=== PATIENT | female | born 1970 | race Two or more races ===

== ENCOUNTER → 2016-12-02 | Outpatient (REF) | payer BC ==
[2016-12-02 19:27] LABS: ALBUMIN 4.4 GM/DL (3.2-5.2); ALBUMIN/GLOBULIN RATIO 1.26 (1.00-1.93); ALKALINE PHOSPHATASE 42 U/L (45-117); ALT/SGPT 13 U/L (12-78); ANION GAP 9 MEQ/L (8-16); AST/SGOT 8 U/L (15-37); BILIRUBIN,TOTAL 0.2 MG/DL (0.2-1.0); BLOOD UREA NITROGEN 23 MG/DL (7-18); CARBON DIOXIDE LEVEL 25 MEQ/L (21-32); CHLORIDE LEVEL 108 MEQ/L (98-107); CREATININE FOR GFR 0.71 MG/DL (0.55-1.02); GLOMERULAR FILTRATION RATE > 60.0 (>58); GLUCOSE, FASTING 86 MG/DL (70-105); POTASSIUM SERUM 4.3 MEQ/L (3.5-5.1); SODIUM LEVEL 142 MEQ/L (136-145); TOTAL PROTEIN 7.9 GM/DL (6.4-8.2); URIC ACID 2.7 MG/DL (2.6-6.0)
[2016-12-02 20:37] LABS: BASO # 0.1 K/mm3 (0.0-0.2); BASO % 0.9 % (0.0-1.0); EOS # 0.2 K/mm3 (0.0-0.50); EOS % 1.8 % (0.0-3.0); LARGE UNSTAINED CELL # 0.1 K/mm3 (0.0-0.4); LARGE UNSTAINED CELL % 1.4 % (0.0-4.0); LYMPH # 2.7 K/mm3 (1.5-4.5); LYMPH % 29.7 % (24.0-44.0); MEAN CORPUSCULAR HEMOGLOBIN 32.2 pg (27.0-33.0); MEAN CORPUSCULAR HGB CONC 34.2 g/dl (32.0-36.5); MEAN CORPUSCULAR VOLUME 94.3 fl (80.0-96.0); MONO # 0.3 K/mm3 (0.0-0.8); MONO % 3.7 % (0.0-5.0); NEUTROPHILS # 5.6 K/mm3 (1.8-7.7); NEUTROPHILS % 62.4 % (36.0-66.0); PLATELET COUNT, AUTOMATED 275 k/mm3 (150-450); RED CELL DISTRIBUTION WIDTH 11.5 % (11.5-14.5); WHITE BLOOD COUNT 8.9 K/mm3 (4.0-10.0)
[2016-12-02 21:49] LABS: ERYTHROCYTE SEDIMENTATION RATE 8 mm/hr (0-20)
[2016-12-07 00:08] LABS: BABESIOSIS LEVEL IGG <1:10 (Neg:<1:10); BABESIOSIS LEVEL IGM <1:10 (Neg:<1:10); Lyme Disease IgG/IgM Antibodie <0.91 ISR (0.00-0.90); Lyme Disease IgM Ab Quantitati <0.80 index (0.00-0.79)
== END ==
LOC: M LAB REF 17:04
DX: M79.609 Pain in unspecified limb (principal)

== ENCOUNTER → 2016-12-16 | Outpatient (CLI) | payer BC ==
--- NOTE | 2016-12-16 14:30 | REP ---
LUMBAR SPINE , FIVE VIEWS: HISTORY: Left hip pain. There are four lumbar type vertebral bodies. There is partial sacralization of the L5 vertebral body. A rudimentary disc is present. There is no acute fracture or subluxation. The L3-4 and L4-5 intervertebral discs are decreased in height. Vacuum phenomenon is present at the L4-5 level. These findings are consistent with disc degeneration. There is narrowing of the L4-5 and L5-S1 facet joints. Surgical clips are present in the pelvis. IMPRESSION: Degenerative change as described above.
--- NOTE | 2016-12-16 14:35 | REP ---
LEFT HIP, TWO VIEWS: HISTORY: Hip pain. There is no acute fracture or dislocation. There is minimal narrowing of the joint space with associated osteophyte formation. IMPRESSION: Degenerative change as described above.
== END ==
LOC: M CLY 13:26
PROVIDERS: ATTEND Physician Assistant
DX: M25.552 Pain in left hip (principal); R30.0 Dysuria; M16.12 Unilateral primary osteoarthritis, left hip

== ENCOUNTER → 2016-12-16 | Outpatient (REF) | payer BC ==
[2016-12-16 17:15] LABS: BASO # 0.1 K/mm3 (0.0-0.2); BASO % 0.8 % (0.0-1.0); EOS # 0.1 K/mm3 (0.0-0.50); EOS % 0.8 % (0.0-3.0); LARGE UNSTAINED CELL # 0.1 K/mm3 (0.0-0.4); LARGE UNSTAINED CELL % 1.6 % (0.0-4.0); LYMPH # 2.3 K/mm3 (1.5-4.5); MEAN CORPUSCULAR HEMOGLOBIN 31.2 pg (27.0-33.0); MEAN CORPUSCULAR HGB CONC 33.3 g/dl (32.0-36.5); MEAN CORPUSCULAR VOLUME 93.9 fl (80.0-96.0); MONO # 0.4 K/mm3 (0.0-0.8); MONO % 5.1 % (0.0-5.0); NEUTROPHILS # 5.3 K/mm3 (1.8-7.7); NEUTROPHILS % 63.7 % (36.0-66.0); PLATELET COUNT, AUTOMATED 252 k/mm3 (150-450); RED CELL DISTRIBUTION WIDTH 11.7 % (11.5-14.5); WHITE BLOOD COUNT 8.4 K/mm3 (4.0-10.0)
[2016-12-16 18:06] LABS: ALBUMIN 4.1 GM/DL (3.2-5.2); ALBUMIN/GLOBULIN RATIO 1.24 (1.00-1.93); ALKALINE PHOSPHATASE 38 U/L (45-117); ALT/SGPT 12 U/L (12-78); ANION GAP 5 MEQ/L (8-16); AST/SGOT 12 U/L (15-37); BILIRUBIN,TOTAL 0.3 MG/DL (0.2-1.0); BLOOD UREA NITROGEN 27 MG/DL (7-18); CALCIUM LEVEL 8.9 MG/DL (8.5-10.1); CARBON DIOXIDE LEVEL 29 MEQ/L (21-32); CHLORIDE LEVEL 108 MEQ/L (98-107); CREATININE FOR GFR 0.67 MG/DL (0.55-1.02); GLOMERULAR FILTRATION RATE > 60.0 (>58); GLUCOSE, FASTING 85 MG/DL (70-105); POTASSIUM SERUM 4.4 MEQ/L (3.5-5.1); SODIUM LEVEL 142 MEQ/L (136-145); TOTAL PROTEIN 7.4 GM/DL (6.4-8.2)
== END ==
LOC: M SFHCCAPE 12:19
PROVIDERS: ATTEND Physician Assistant
DX: R30.0 Dysuria (principal); M25.552 Pain in left hip; M16.12 Unilateral primary osteoarthritis, left hip

== ENCOUNTER → 2016-12-27 | Outpatient (REF) | payer BC ==
[2016-12-27 12:03] LABS: FOLATE 12.2 NG/ML; VITAMIN B12 LEVEL 1799 PG/ML
[2016-12-27 12:12] LABS: FREE T4 1.04 NG/DL (0.76-1.46); TOTAL PROTEIN 7.5 GM/DL (6.4-8.2)
[2016-12-30 13:12] LABS: ALBUMIN 4.46 GM/DL (3.29-5.55); ALBUMIN % 59.4 % (55.8-66.1); GAMMA GLOBULIN % 15.1 % (11.1-18.8)
[2016-12-31 00:06] LABS: VITAMIN E LEVEL 11.5 mg/L (5.3-16.8)
== END ==
LOC: M LABNEURO 09:31
PROVIDERS: ATTEND Psychiatry & Neurology Neurology
DX: G62.9 Polyneuropathy, unspecified (principal)

== ENCOUNTER → 2018-12-15 | Outpatient (REF) | payer BC | LOC: M LAB 14:51 | PROVIDERS: ATTEND Allergy & Immunology Allergy | DX: Z91.040 Latex allergy status (principal) ==

== ENCOUNTER → 2020-03-20 | Outpatient (CLI) | payer BC | LOC: M LABSMTC 13:24 | PROVIDERS: ATTEND Family Medicine | DX: Z11.59 Encounter for screening for other viral diseases (principal) | CPT/HCPCS: C9803; U0002 ==

== ENCOUNTER 2021-02-18 12:16 | Emergency (ER) | payer BC ==
[~2021-02-18] VITALS: Ht 157.5 cm; Wt 50.0 kg
[2021-02-18] MEDS ORDERED: advil PO (12:34)
--- NOTE | 2021-02-18 13:41 | REP ---
INDICATION: fall COMPARISON: None. TECHNIQUE: AP, lateral, bilateral oblique views . AP and lateral views of the sacrum and coccyx FINDINGS: Bilateral sacroiliac joints appear symmetric and relatively normal. No obvious sacrococcygeal fracture or acute injury identified. IMPRESSION: No obvious acute fracture or injury identified. <Electronically signed by Isauro Buenrostro > 02/18/21 [id number]
[2021-02-18] MEDS ORDERED: IBUPROFEN 600MG TAB PO ONE (14:15)
[2021-02-18 15:03] LABS: BASO # 0.1 10^3/uL (0.0-0.2); BASO % 0.5 % (0.0-1.0); EOS % 0.2 % (0.0-3.0); HEMATOCRIT 39.8 % (36.0-47.0); HEMOGLOBIN 13.2 g/dl (12.0-15.5); LYMPH # 1.4 10^3/uL (1.5-5.0); LYMPH % 11.2 % (24.0-44.0); MEAN CORPUSCULAR HGB CONC 33.2 g/dl (32.0-36.5); MEAN CORPUSCULAR VOLUME 96.4 fl (80.0-96.0); MONO # 0.6 10^3/uL (0.0-0.8); MONO % 4.6 % (2.0-8.0); NEUTROPHILS # 10.4 10^3/uL (1.5-8.5); NEUTROPHILS % 83.1 % (36.0-66.0); PLATELET COUNT, AUTOMATED 264 10^3/uL (150-450); RED BLOOD COUNT 4.13 10^6/uL (4.00-5.40); WHITE BLOOD COUNT 12.5 10^3/uL (4.0-10.0)
[2021-02-18 15:23] LABS: CK-MB VALUE MASS < 1.0 NG/ML (<3.6); CPK CREATINE PHOSPHOKINASE 86 U/L (26-192); MB/CK RELATIVE INDEX 1.16 (< OR =4); TROPONIN I < 0.02 NG/ML (< 0.10)
[2021-02-18 15:54] VITALS: BP 149/77
--- NOTE | 2021-02-19 09:27 | ECGEPIP ---
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
== END 2021-02-18 15:55 | disposition home or self-care (01) ==
LOC: M ED 12:16
DX: S30.0XXA Contusion of lower back and pelvis, initial encounter (principal); M53.3 Sacrococcygeal disorders, not elsewhere classified; R41.82 Altered mental status, unspecified; W19.XXXA Unspecified fall, initial encounter; Y92.009 Unspecified place in unspecified non-institutional (private) residence as the place of occurrence of the external cause; Y93.H2 Activity, gardening and landscaping; Y99.9 Unspecified external cause status; R00.1 Bradycardia, unspecified; I44.0 Atrioventricular block, first degree; F17.200 Nicotine dependence, unspecified, uncomplicated; Z91.018 Allergy to other foods; Z88.8 Allergy status to other drugs, medicaments and biological substances

== ENCOUNTER → 2021-03-02 | Outpatient (CLI) | payer BC ==
[~2021-03-02] MED LIST: advil PO
[2021-03-02 12:50] LABS: BASO # 0.1 10^3/uL (0.0-0.2); BASO % 0.4 % (0.0-1.0); EOS % 0.3 % (0.0-3.0); HEMATOCRIT 41.8 % (36.0-47.0); HEMOGLOBIN 13.9 g/dl (12.0-15.5); LYMPH # 2.6 10^3/uL (1.5-5.0); LYMPH % 22.1 % (24.0-44.0); MEAN CORPUSCULAR HEMOGLOBIN 31.2 pg (27.0-33.0); MEAN CORPUSCULAR HGB CONC 33.3 g/dl (32.0-36.5); MEAN CORPUSCULAR VOLUME 93.9 fl (80.0-96.0); MONO # 0.6 10^3/uL (0.0-0.8); MONO % 5.1 % (2.0-8.0); NEUTROPHILS # 8.6 10^3/uL (1.5-8.5); NEUTROPHILS % 71.8 % (36.0-66.0); PLATELET COUNT, AUTOMATED 281 10^3/uL (150-450); RED BLOOD COUNT 4.45 10^6/uL (4.00-5.40)
[2021-03-02 13:28] LABS: C REACTIVE PROTEIN QUANTITATIV < 0.30 MG/DL (0.00-0.30)
[2021-03-02 13:38] LABS: ERYTHROCYTE SEDIMENTATION RATE 12 mm/hr (0-30)
[2021-03-05 15:30] LABS: Lyme Disease IgG/IgM Antibodie <0.91 ISR (0.00-0.90); Lyme Disease IgM Ab Quantitati <0.80 index (0.00-0.79)
== END ==
LOC: M PLALAB 11:07
PROVIDERS: ATTEND Physician Assistant Surgical
DX: M53.3 Sacrococcygeal disorders, not elsewhere classified (principal)

== ENCOUNTER → 2021-03-04 | Outpatient (CLI) | payer BC ==
--- NOTE | 2021-03-04 11:09 | REP ---
INDICATION: SACROCOCCYGEAL DISORDERS, NOT ELSEWHERE CLASSIFIED. Patient reports a fall with trauma to the tailbone and inability to sit without pain. COMPARISON: Comparison radiographs of the sacrum and coccyx are from February 18, 2021. TECHNIQUE: Axial, oblique coronal, and sagittal imaging planes are utilized oriented to the sacrum. T1 and T2 weighted scans are included with without fat saturation.. FINDINGS: There are multiple incidental perineural cysts in the upper sacrum noted incidentally. The largest of these is to the left of midline measuring 2.1 cm in greatest diameter. These are incidental variant findings felt to be of no clinical significance. There is also a small incidental cyst in the proximal coccygeal segment. However, axial and sagittal images do demonstrate a nondisplaced radiographically occult fracture of the 4th sacral segment with some mild presacral and retro sacral soft tissue edema and low T1 and low T2 intraosseous signal intensity. There is very slight buckling of the anterior cortex but the fractures otherwise nondisplaced. No other sacral or coccygeal fracture is seen. There is degenerative narrowing of the L4-5 disc space. The study is otherwise unremarkable. IMPRESSION: Radiographically occult nondisplaced fracture of the 4th sacral segment with mild associated soft tissue and intraosseous edema. <Electronically signed by Jim Isaacs > 03/04/21 [id number]
== END ==
LOC: M RAD 08:03
PROVIDERS: ATTEND Physician Assistant Surgical
DX: M53.3 Sacrococcygeal disorders, not elsewhere classified (principal)

== ENCOUNTER → 2021-03-06 | Outpatient (REF) | payer BC ==
[2021-03-07 11:50] LABS: BASO # 0.1 10^3/uL (0.0-0.2); BASO % 0.9 % (0.0-1.0); EOS # 0.2 10^3/uL (0.0-0.5); EOS % 1.8 % (0.0-3.0); HEMATOCRIT 42.4 % (36.0-47.0); HEMOGLOBIN 14.1 g/dl (12.0-15.5); LYMPH # 3.5 10^3/uL (1.5-5.0); LYMPH % 35.3 % (24.0-44.0); MEAN CORPUSCULAR HEMOGLOBIN 31.6 pg (27.0-33.0); MEAN CORPUSCULAR HGB CONC 33.3 g/dl (32.0-36.5); MEAN CORPUSCULAR VOLUME 95.1 fl (80.0-96.0); MONO # 0.7 10^3/uL (0.0-0.8); MONO % 6.5 % (2.0-8.0); NEUTROPHILS # 5.6 10^3/uL (1.5-8.5); NEUTROPHILS % 55.3 % (36.0-66.0); PLATELET COUNT, AUTOMATED 264 10^3/uL (150-450); RED BLOOD COUNT 4.46 10^6/uL (4.00-5.40)
[2021-03-07 12:38] LABS: ERYTHROCYTE SEDIMENTATION RATE 11 mm/hr (0-30)
== END ==
LOC: M LABDRAWC 11:23
PROVIDERS: ATTEND Physician Assistant Surgical
DX: S32.19XA Other fracture of sacrum, initial encounter for closed fracture (principal); W18.30XA Fall on same level, unspecified, initial encounter; Y92.009 Unspecified place in unspecified non-institutional (private) residence as the place of occurrence of the external cause

== ENCOUNTER → 2021-06-20 | Outpatient (CLI) | payer BC | LOC: M RAD 09:25 | PROVIDERS: ATTEND Physician Assistant Surgical | DX: S32.19XD Other fracture of sacrum, subsequent encounter for fracture with routine healing (principal); W18.30XD Fall on same level, unspecified, subsequent encounter; Y92.009 Unspecified place in unspecified non-institutional (private) residence as the place of occurrence of the external cause ==

== ENCOUNTER 2021-09-06 09:17 | Emergency (ER) | payer BC ==
[~2021-09-06] VITALS: Ht 157.5 cm; Wt 53.2 kg
[2021-09-06 10:08] LABS: BASO % 0.4 % (0.0-1.0); EOS # 0.1 10^3/uL (0.0-0.5); HEMATOCRIT 38.3 % (36.0-47.0); HEMOGLOBIN 12.8 g/dl (12.0-15.5); LYMPH # 2.6 10^3/uL (1.5-5.0); LYMPH % 29.5 % (24.0-44.0); MEAN CORPUSCULAR HGB CONC 33.4 g/dl (32.0-36.5); MEAN CORPUSCULAR VOLUME 92.7 fl (80.0-96.0); MONO # 0.7 10^3/uL (0.0-0.8); MONO % 7.6 % (2.0-8.0); NEUTROPHILS # 5.5 10^3/uL (1.5-8.5); NEUTROPHILS % 61.4 % (36.0-66.0); PLATELET COUNT, AUTOMATED 348 10^3/uL (150-450); RED BLOOD COUNT 4.13 10^6/uL (4.00-5.40); WHITE BLOOD COUNT 8.9 10^3/uL (4.0-10.0)
--- NOTE | 2021-09-06 10:30 | REP ---
INDICATION: CHEST PAIN. COMPARISON: 12/07/2009 the latest prior TECHNIQUE: Portable FINDINGS: The technique utilized in obtaining the radiograph has magnified the cardiac silhouette and accentuated the interstitial markings. The superior mediastinal structures are midline. The cardiac silhouette is unremarkable in size, shape, and position. The diaphragmatic surfaces of the lungs are regular, and the costophrenic angles are clear. The pulmonary neri are clear. The imaged osseous structures are intact. IMPRESSION: There is no acute cardiopulmonary disease. The pleural angles have not been included on this portable radiograph. If clinically relevant obtain repeat. <Electronically signed by Niles King > 09/06/21 1300
[2021-09-06 10:55] LABS: BLOOD UREA NITROGEN 22 MG/DL (7-18); CALCIUM LEVEL 9.4 MG/DL (8.5-10.1); CARBON DIOXIDE LEVEL 27 MEQ/L (21-32); CHLORIDE LEVEL 106 MEQ/L (98-107); CREATININE FOR GFR 0.62 MG/DL (0.55-1.30); GLOMERULAR FILTRATION RATE > 60.0 (>51); GLUCOSE, FASTING 102 MG/DL (70-100); POTASSIUM SERUM 4.4 MEQ/L (3.5-5.1); SODIUM LEVEL 139 MEQ/L (136-145)
[2021-09-06 11:21] LABS: APPEARANCE, URINE CLEAR (CLEAR); BACTERIA, URINE AUTO NEGATIVE (NEGATIVE); BILIRUBIN, URINE AUTO NEGATIVE (NEGATIVE); BLOOD, URINE BLOOD NEGATIVE (NEGATIVE); COLOR, URINE YELLOW (YELLOW); GLUCOSE, URINE (UA) AUTO NEGATIVE (NEGATIVE); KETONE, URINE AUTO NEGATIVE (NEGATIVE); LEUKOCYTE ESTERASE, URINE AUTO NEGATIVE (NEGATIVE); MUCUS, URINE SMALL (NEGATIVE); NITRITE, URINE AUTO NEGATIVE (NEGATIVE); PROTEIN, URINE AUTO NEGATIVE (NEGATIVE); RBC, URINE AUTO 0 /HPF (0-3); SPECIFIC GRAVITY URINE AUTO 1.013 (1.002-1.035); SQUAMOUS EPITHELIAL CELL UR AU 0 /HPF (0-6); UROBILINOGEN, URINE AUTO 0.2 mg/dL (0.0-2.0); WBC, URINE AUTO 0 /HPF (0-3)
[2021-09-06 11:42] LABS: FREE THYROXINE INDEX 2.6 % (1.3-4.8); MAGNESIUM LEVEL 2.4 MG/DL (1.8-2.4); T UPTAKE 34 % (30-39); THYROID STIMULATING HORMONE 0.976 uIU/ML (0.358-3.740); THYROXINE (T4) 7.7 UG/DL (4.5-12.0)
[2021-09-06] MEDS ORDERED: ALBUTEROL 90 MCG/ACT 8GM HFA INHALER INH ONE (12:05)
[2021-09-06 13:01] VITALS: BP 141/64
[2021-09-06] MEDS ORDERED: VENTAER INH (13:04)
--- NOTE | 2021-09-06 18:33 | ECGEPIP ---
[facility] - ED Test Date: 2021-09-06 Pat Name: JUAN GOMEZ Department: Room: - Gender: Female [employer] Apprentice: : 1970 Requested By: Monica Altamirano Order Number: [id number] Reading MD: David Velázquez Measurements Intervals [place] Rate: 67 P: 69 VT: 204 QRS: 63 QRSD: 84 T: 68 QT: 404 QTc: 426 Interpretive Statements Normal sinus rhythm with 1st degree AV block POOR R WAVE PROGRESSION SIMILAR TO 02/18/21 Electronically Signed on 09-06-2021 18:32:55 EST by David Velázquez
== END 2021-09-06 13:11 | disposition home or self-care (01) ==
LOC: M ED 09:17
DX: R00.2 Palpitations (principal); I95.1 Orthostatic hypotension; I44.0 Atrioventricular block, first degree; Z86.16 Personal history of COVID-19; F17.200 Nicotine dependence, unspecified, uncomplicated; Z88.8 Allergy status to other drugs, medicaments and biological substances; Z91.018 Allergy to other foods

== ENCOUNTER → 2022-01-07 | Outpatient (REF) | payer BC ==
[~2022-01-07] MED LIST changes: +VENTAER INH
== END ==
LOC: M SFHCCAPE 13:06
PROVIDERS: ATTEND Physician Assistant
DX: K13.70 Unspecified lesions of oral mucosa (principal)

== ENCOUNTER → 2022-01-08 | Outpatient (REF) | payer BC ==
[2022-01-08 11:56] LABS: BASO # 0.1 10^3/uL (0.0-0.2); BASO % 0.7 % (0.0-1.0); EOS # 0.1 10^3/uL (0.0-0.5); EOS % 0.7 % (0.0-3.0); HEMATOCRIT 39.8 % (36.0-47.0); HEMOGLOBIN 13.1 g/dl (12.0-15.5); LYMPH # 2.6 10^3/uL (1.5-5.0); LYMPH % 31.2 % (24.0-44.0); MEAN CORPUSCULAR HEMOGLOBIN 31.3 pg (27.0-33.0); MEAN CORPUSCULAR HGB CONC 32.9 g/dl (32.0-36.5); MEAN CORPUSCULAR VOLUME 95.2 fl (80.0-96.0); MONO # 0.5 10^3/uL (0.0-0.8); NEUTROPHILS # 5.1 10^3/uL (1.5-8.5); NEUTROPHILS % 60.9 % (36.0-66.0); PLATELET COUNT, AUTOMATED 269 10^3/uL (150-450); RED BLOOD COUNT 4.18 10^6/uL (4.00-5.40); WHITE BLOOD COUNT 8.4 10^3/uL (4.0-10.0)
[2022-01-08 12:24] LABS: ERYTHROCYTE SEDIMENTATION RATE 10 mm/hr (0-30)
[2022-01-08 12:31] LABS: ALBUMIN 4.1 GM/DL (3.2-5.2); ALT/SGPT 18 U/L (12-78); BILIRUBIN,TOTAL 0.3 MG/DL (0.2-1.0); BLOOD UREA NITROGEN 14 MG/DL (7-18); CALCIUM LEVEL 9.4 MG/DL (8.5-10.1); CARBON DIOXIDE LEVEL 28 MEQ/L (21-32); CHLORIDE LEVEL 113 MEQ/L (98-107); CHOLESTEROL LEVEL 206 MG/DL (<200); CHOLESTEROL RISK RATIO 2.821 (<5); CREATININE FOR GFR 0.71 MG/DL (0.55-1.30); FREE T4 0.82 NG/DL (0.76-1.46); GLOMERULAR FILTRATION RATE > 60.0 (>51); GLUCOSE, FASTING 91 MG/DL (70-100); HDL CHOLESTEROL 73 MG/DL (>40); LDL CHOLESTEROL 121 MG/DL (<100); NON-HDL-C 133 MG/DL; NT-PRO BNP 116 PG/ML (<125); POTASSIUM SERUM 4.1 MEQ/L (3.5-5.1); SODIUM LEVEL 144 MEQ/L (136-145); TOTAL 25(OH) VITAMIN D 97.1 NG/ML (30.0-100.0); TOTAL PROTEIN 7.2 GM/DL (6.4-8.2); TRIGLYCERIDES LEVEL 62 MG/DL (<150)
[2022-01-08 13:18] LABS: APPEARANCE, URINE CLEAR (CLEAR); BACTERIA, URINE AUTO NEGATIVE (NEGATIVE); BILIRUBIN, URINE AUTO NEGATIVE (NEGATIVE); BLOOD, URINE BLOOD NEGATIVE (NEGATIVE); COLOR, URINE YELLOW (YELLOW); GLUCOSE, URINE (UA) AUTO NEGATIVE (NEGATIVE); KETONE, URINE AUTO NEGATIVE (NEGATIVE); LEUKOCYTE ESTERASE, URINE AUTO NEGATIVE (NEGATIVE); NITRITE, URINE AUTO NEGATIVE (NEGATIVE); PROTEIN, URINE AUTO NEGATIVE (NEGATIVE); RBC, URINE AUTO 0 /HPF (0-3); SPECIFIC GRAVITY URINE AUTO 1.015 (1.002-1.035); SQUAMOUS EPITHELIAL CELL UR AU 0 /HPF (0-6); WBC, URINE AUTO 1 /HPF (0-3)
== END ==
LOC: M LAB 10:54
PROVIDERS: ATTEND Physician Assistant
DX: K13.70 Unspecified lesions of oral mucosa (principal); R42 Dizziness and giddiness

== ENCOUNTER → 2022-01-21 | Outpatient (CLI) | payer BC | LOC: M EKG 14:20 | PROVIDERS: ATTEND Physician Assistant | DX: R42 Dizziness and giddiness (principal) ==

== ENCOUNTER → 2022-11-13 | Outpatient (CLI) | payer BC | LOC: M RAD 07:05 | PROVIDERS: ATTEND Internal Medicine Gastroenterology | DX: R10.817 Generalized abdominal tenderness (principal) ==

== ENCOUNTER → 2023-12-02 | Outpatient (REF) | payer BC | LOC: M EMP 11:45 | PROVIDERS: ATTEND Physician Assistant Medical | DX: J20.9 Acute bronchitis, unspecified (principal) ==

== ENCOUNTER → 2024-01-26 | Outpatient (REF) | payer BC ==
[2024-01-26 12:24] LABS: CORTISOL AM 3.9 UG/DL (4.3-22.4)
[2024-01-26 12:28] LABS: FOLLICLE STIMULATING HORMONE 58.9 mIU/ML; FREE T4 0.84 NG/DL (0.89-1.76)
[2024-01-26 12:29] LABS: LUTEINIZING HORMONE 27.2 mIU/ML; THYROID STIMULATING HORMONE 1.182 uIU/ML (0.55-4.78)
[2024-01-26 12:30] LABS: PROGESTERONE < 0.21 NG/ML
== END ==
LOC: M LAB REF 10:33
PROVIDERS: ATTEND Obstetrics & Gynecology
DX: N95.1 Menopausal and female climacteric states (principal); F52.0 Hypoactive sexual desire disorder; R53.83 Other fatigue

== ENCOUNTER → 2024-01-29 | Outpatient (CLI) | payer BC | LOC: M WHC 09:13 | PROVIDERS: ATTEND Obstetrics & Gynecology | DX: Z12.31 Encounter for screening mammogram for malignant neoplasm of breast (principal); M81.0 Age-related osteoporosis without current pathological fracture ==

== ENCOUNTER → 2024-03-15 | Outpatient (REF) | payer BC ==
[2024-03-15 10:04] LABS: ESTRADIOL 48.3 PG/ML; FOLLICLE STIMULATING HORMONE 41.5 mIU/ML; LUTEINIZING HORMONE 23.8 mIU/ML
[2024-03-15 10:05] LABS: PROGESTERONE < 0.21 NG/ML
== END ==
LOC: M LAB REF 09:01
PROVIDERS: ATTEND Obstetrics & Gynecology
DX: N95.1 Menopausal and female climacteric states (principal); F52.0 Hypoactive sexual desire disorder; R53.83 Other fatigue

== ENCOUNTER → 2024-05-10 | Outpatient (REF) | payer BC ==
[2024-05-10 09:55] LABS: LUTEINIZING HORMONE 20.2 mIU/ML
[2024-05-10 09:56] LABS: PROGESTERONE < 0.21 NG/ML
[2024-05-11 09:25] LABS: ESTRADIOL 64.6 PG/ML
== END ==
LOC: M LAB REF 09:00
PROVIDERS: ATTEND Obstetrics & Gynecology
DX: N95.1 Menopausal and female climacteric states (principal); F52.0 Hypoactive sexual desire disorder; R53.83 Other fatigue

== ENCOUNTER → 2024-07-07 | Outpatient (REF) | payer BC ==
[2024-07-07 10:35] LABS: ESTRADIOL 89.6 PG/ML; FOLLICLE STIMULATING HORMONE 25.4 mIU/ML; PROGESTERONE < 0.21 NG/ML
[2024-07-08 06:56] LABS: LUTEINIZING HORMONE 21.4 mIU/ML
== END ==
LOC: M LAB REF 09:06
PROVIDERS: ATTEND Obstetrics & Gynecology
DX: N95.1 Menopausal and female climacteric states (principal); F52.0 Hypoactive sexual desire disorder; R53.83 Other fatigue

== ENCOUNTER → 2024-09-08 | Outpatient (REF) | payer BC ==
[2024-09-08 13:25] LABS: FOLLICLE STIMULATING HORMONE 37.6 mIU/ML; PROGESTERONE 0.21 NG/ML
[2024-09-08 13:26] LABS: LUTEINIZING HORMONE 25.1 mIU/ML
[2024-09-08 13:27] LABS: ESTRADIOL 67.1 PG/ML
== END ==
LOC: M LAB REF 11:34
PROVIDERS: ATTEND Obstetrics & Gynecology
DX: N95.1 Menopausal and female climacteric states (principal); F52.0 Hypoactive sexual desire disorder; R53.83 Other fatigue

== ENCOUNTER → 2024-10-11 | Outpatient (REF) | LOC: M EMP 09:23 | PROVIDERS: ATTEND Family Medicine | DX: Z01.89 Encounter for other specified special examinations (principal) ==

== ENCOUNTER → 2024-10-11 | Outpatient (REF) | payer BC | LOC: M LAB REF 09:24 | PROVIDERS: ATTEND Physician Assistant Medical | DX: R05.1 Acute cough (principal) ==

== ENCOUNTER → 2024-10-27 | Outpatient (REF) | payer BC ==
[2024-10-27 09:55] LABS: PROGESTERONE < 0.21 NG/ML
[2024-10-27 09:56] LABS: FOLLICLE STIMULATING HORMONE 20.6 mIU/ML
[2024-10-28 06:57] LABS: LUTEINIZING HORMONE 16.1 mIU/ML
== END ==
LOC: M LAB REF 09:08
PROVIDERS: ATTEND Obstetrics & Gynecology
DX: N95.1 Menopausal and female climacteric states (principal); F52.0 Hypoactive sexual desire disorder; R53.83 Other fatigue

== ENCOUNTER → 2025-01-31 | Outpatient (CLI) | payer BC | LOC: M WHC 10:04 | PROVIDERS: ATTEND Obstetrics & Gynecology | DX: Z12.31 Encounter for screening mammogram for malignant neoplasm of breast (principal) ==

== ENCOUNTER → 2025-02-01 | Outpatient (REF) | payer BC ==
[2025-02-01 11:36] LABS: FOLLICLE STIMULATING HORMONE 24.6 mIU/ML; LUTEINIZING HORMONE 18.1 mIU/ML
[2025-02-01 11:37] LABS: ESTRADIOL 94.7 PG/ML; PROGESTERONE 0.21 NG/ML
== END ==
LOC: M LAB REF 10:42
PROVIDERS: ATTEND Obstetrics & Gynecology
DX: N95.1 Menopausal and female climacteric states (principal); F52.0 Hypoactive sexual desire disorder; R53.83 Other fatigue